=== PATIENT | male | born 2000 | race Two or more races ===

== ENCOUNTER 2024-11-12 18:24 | Emergency (ER) | payer MEDICAID, OTHER ==
[~2024-11-12] VITALS: Ht 177.8 cm; Wt 87.8 kg
--- NOTE | 2024-11-12 18:55 | ECG ---
[facility] Test Date: 2024-11-12 Test Time: 18:49:59 Pat Name: TWIN ARCHIBALD Department: ER Room: Gender: M Comptroller: GP : 2000 Requested By: DOMINIC GUTIERREZ Order Number: [id number] Reading MD: Doug Tellez Measurements Intervals [place] Rate: 83 P: 25 HI: 158 QRS: 52 QRSD: 93 T: 53 QT: 349 QTc: 410 Interpretive Statements Sinus rhythm ST elev, probable normal early repol pattern Electronically Signed On 11-16-2024 9:46:48 PDT by Doug Tellez Please click the below link to view image of tracing.
[2024-11-12 19:14] LABS: Hematocrit 48.4 % (41.0-53.0); Hemoglobin 16.8 g/dL (13.5-17.5); Mean Corpuscular Hemoglobin 28.8 pg (28.0-32.0); Mean Corpuscular Volume 83.0 fL (80.0-100.0); Nucleated Red Blood Cells % 0.1 %
[2024-11-12 19:21] LABS: Chloride 106 mmol/L (98-107); Potassium 3.9 mmol/L (3.5-5.1); Sodium 143 mmol/L (136-145)
[2024-11-12 19:22] LABS: Anion Gap 8 (5-15); Carbon Dioxide 29 mmol/L (20-31)
[2024-11-12 19:27] LABS: BUN/Creatinine Ratio 10.9 (10.0-20.0); Blood Urea Nitrogen 13 mg/dL (9-23); Glucose 89 mg/dL (74-106)
--- NOTE | 2024-11-12 19:35 | DVH ---
CT HEAD WITHOUT CONTRAST INDICATION: dizziness COMPARISON: None TECHNIQUE: CT of the head without intravenous contrast. RADIATION DOSE: CTDIvol: 53.99 mGy, DLP: 863.9 mGy*cm FINDINGS: There is no evidence of intracranial hemorrhage, infarct, extra-axial collection, mass effect, midli ne shift, herniation or hydrocephalus. The ventricles, sulci and cisterns are normal. The aggarwal-white differentiation is normal. Visualized paranasal sinuses and mastoid air cells are clear. Soft tissues and osseous structures are unremarkable. IMPRESSION: No intracranial abnormality identified.
[2024-11-12 19:36] LABS: Calcium 10.6 mg/dL (8.7-10.4)
--- NOTE | 2024-11-12 19:41 | ED.PDOC ---
HPI Comments 23-year-old male presents to ER with complaints of dizziness x 10 days. Patient with no PMH reports he has been experiencing intermittent dizziness x 10 days. Describes his dizziness as sensation of "room spinning" and notes that he does have 100% improvement in symptoms if he does take OTC Dramamine. Denies any pain and presents to ER ambulatory on arrival, alert oriented x4, with steady gait, in no distress. Denies fever, shortness of breath, chest pain, palpitations, syncope, head injury, nausea/vomiting or any further symptoms/complaints Chief Complaint: Dizziness Time Seen by MD: 18:43 Primary Care Provider: DENIES Reviewed Notes: Nurses Notes, Medications, Allergies Allergies: Coded Allergies: NO KNOWN ALLERGIES (Unverified , 11/12/24) Home Meds Active Scripts Meclizine Hcl (Meclizine Hcl) 12.5 Mg Tab, 2 TAB PO QIDP, #16 TAB 0 Refills Prov:ANDREZCAMDOMINIC 11/12/24 Information Source: Patient Mode of Arrival: Ambulatory Past Medical History PAST MEDICAL HISTORY: Denies Surgical History: Denies all surgeries Family History Family History: Unknown Social History Smoker: Non-Smoker Alcohol: Denies ETOH Use Drugs: Denies Drug Use Lives In: Home Constitutional: denies: chills, diaphoresis, fatigue, fever, malaise, sweats, weakness, others EENTM: denies: blurred vision, double vision, ear bleeding, ear discharge, ear drainage, ear pain, ear ringing, eye pain, eye redness, hearing loss, mouth pain, mouth swelling, nasal discharge, nose bleeding, nose congestion, nose pain, photophobia, tearing, throat pain, throat swelling, voice changes, others Respiratory: denies: cough, hemoptysis, orthopnea, SOB at rest, shortness of breath, SOB with excertion, stridor, wheezing, others Cardiovascular: reports: others (As stated in HPI) Gastrointestinal: denies: abdomen distended, abdominal pain, blood streaked bowels, constipated, diarrhea, dysphagia, difficulty swallowing, hematemesis, melena, nausea, poor appetite, poor fluid intake, rectal bleeding, rectal pain, vomiting, others Genitourinary: denies: burning, dysuria, flank pain, frequency, hematuria, incontinence, penile discharge, penile sore, pain, testicle pain, testicle swelling, urgency, others Neurological: reports: others (As stated in HPI) Musculoskeletal: denies: back pain, gout, joint pain, joint swelling, muscle pain, muscle stiffness, neck pain, others Integumetry: denies: bruises, change in color, change in hair/nails, dryness, laceration, lesions, lumps, rash, wounds, others Allergic/Immunocompromised: denies: Difficulty Healing, Frequent Infections, Hives, Itching, others Hematologic/Lymphatic: denies: anemia, blood clots, easy bleeding, easy bruising, swollen glands, others Endocrine: denies: excessive hunger, excessive sweating, excessive thirst, excessive urination, flushing, intolerance to cold, intolerance to heat, unexplained weight gain, unexplained weight loss, others Psychiatric: denies: anxiety, bipolar disorder, depression, hopeless, panic disorder, schizophrenia, sleepless, suicidal, others Physical Exam General Appearance: No Apparent Distress HEENT: Normal ENT Inspection, PERRL/EOMI, Pharynx Normal, TMs Normal Neck: Full Range of Motion, Non-Tender, Normal Respiratory: Chest Non-Tender, Lungs Clear, No Accessory Muscle Use, No Respiratory Distress, Normal Breath Sounds Cardiovascular: No Murmur, No Gallop, Regular Rate/Rhythm Breast Exam: Deferred Gastrointestinal: NOT DONE Genitalia: Deferred Pelvic: Deferred Rectal: Deferred Extremities: Normal capillary refill, Normal range of motion Neurologic: Alert, hand shoe cutter II-XII nml as Tested, No Motor Deficits, Normal Affect, Normal Mood, No Sensory Deficits Cerebellar Function: Normal Reflexes: Normal Skin: Dry, Normal Color, Warm Peripheral Pulses: 2+ Radial (R), 2+ Radial (L), 2+ Brachial (R), 2+ Brachial (L) Lymphatic: No Adenopathy EKG EKG : Pulse Rate (adult): 83 [place]: Normal Cardiac Rhythm: NSR (SR) Block: None Hypertrophy: None Was a procedure done? Was a procedure done?: No Sedation Sedation?: No CP Differential Dx Differential Diagnosis: Electrolyte Disorder, [place], Pulmonary Embolus, Other (mass) X-Ray, Labs, Meds, VS Vital Signs Date Time Temp Pulse Resp B/P (MAP) Pulse Ox O2 Delivery O2 Flow Rate FiO2 11/12/24 19:41 83 11/12/24 18:49 83 11/12/24 18:47 98.0 74 18 133/83 (100) 98 98.0 Lab Test 11/12/24 19:01 11/12/24 18:39 11/12/24 18:30 Range/Units White Blood Count 6.4 4.4-10.8 10^3/uL Red Blood Count 5.83 4.5-5.90 10^6/uL Hemoglobin 16.8 13.5-17.5 g/dL Hematocrit 48.4 41.0-53.0 % Mean Corpuscular Volume 83.0 80.0-100.0 fL Mean Corpuscular Hemoglobin 28.8 28.0-32.0 pg Mean Corpuscular Hemoglobin Concent 34.8 32.0-36.0 g/dL Red Cell Distribution Width 13.2 11.8-14.3 % Platelet Count 263 140-450 10^3/uL Mean Platelet Volume 7.6 6.9-10.8 fL Neutrophils (%) (Auto) 49.3 37.0-80.0 % Lymphocytes (%) (Auto) 41.0 10.0-50.0 % Monocytes (%) (Auto) 7.9 0.0-12.0 % Eosinophils (%) (Auto) 1.1 0.0-7.0 % Basophils (%) (Auto) 0.7 0.0-2.0 % Neutrophils # (Auto) 3.1 1.6-8.6 10 ^3/uL Lymphocytes # (Auto) 2.6 0.4-5.4 10 ^3/uL Monocytes # (Auto) 0.5 0-1.3 10 ^3/uL Eosinophils # (Auto) 0.1 0-0.8 10 ^3/uL Basophils # (Auto) 0 0-0.2 10 ^3/uL Nucleated Red Blood Cells 0.1 % Sodium Level 143 136-145 mmol/L Potassium Level 3.9 3.5-5.1 mmol/L Chloride Level 106 98-107 mmol/L Carbon Dioxide Level 29 20-31 mmol/L Anion Gap 8 5-15 Blood Urea Nitrogen 13 9-23 mg/dL Creatinine 1.19 0.700-1.30 mg/dL Glomerular Filtration Rate Calc 89 >90 mL/min BUN/Creatinine Ratio 10.9 10.0-20.0 Serum Glucose 89 74-106 mg/dL Calcium Level 10.6 H 8.7-10.4 mg/dL Troponin I High Sensitivity 3 L </=54 ng/L POC Glucose 96 70-106 mg/dl Urine Color Yellow Yellow Urine Clarity Clear Clear Urine pH 5.5 5.0-9.0 Urine Specific [place] 1.031 1.001-1.035 Urine Protein Negative Negative Urine Ketones Negative Negative Urine Blood Negative Negative /uL Urine Nitrite Negative Negative Urine Bilirubin Negative Negative Urine Urobilinogen Normal Negative mg/dL Urine Leukocyte Esterase Negative Negative /uL Urine RBC <1 0 - 3 /hpf Urine Microscopic WBC 1 0-3 /HPF Urine Squamous Epithelial Cells Few <5 /hpf Urine Bacteria None seen None Seen /hpf Urine Glucose Normal Normal mg/dL Urine Opiates Screen Neg NEGATIVE Urine Fentanyl Screen Neg NEGATIVE Urine Barbiturates Screen Neg NEGATIVE Urine Phencyclidine Screen Neg NEGATIVE Urine Amphetamines Screen Neg NEGATIVE Urine Benzodiazepines Screen Neg NEGATIVE Urine Cocaine Screen Neg NEGATIVE Urine Cannabinoids Screen Neg NEGATIVE PATIENT: MALISSA ARCHIBALDCCT: [id number]: [id number] : 2000 LOC: ER ROOM / BED: / AGE / SEX: 23 / M ADM STATUS: REG ER SERVICE 184 ORDERING PHYSICIAN: DOMINIC GUTIERREZ PROCEDURE(s): HWOCT - HEAD WITHOUT CONTRAST REASON: dizziness ORDER NUMBER(s): [id number], ACCESSION NUMBER(s): [id number] CT HEAD WITHOUT CONTRAST INDICATION: dizziness COMPARISON: None TECHNIQUE: CT of the head without intravenous contrast. RADIATION DOSE: CTDIvol: 53.99 mGy, DLP: 863.9 mGy*cm FINDINGS: There is no evidence of intracranial hemorrhage, infarct, extra-axial collection, mass effect, midline shift, herniation or hydrocephalus. The ventricles, sulci and cisterns are normal. The aggarwal-white differentiation is normal. Visualized paranasal sinuses and mastoid air cells are clear. Soft tissues and osseous structures are unremarkable. IMPRESSION: No intracranial abnormality identified. ATED BY: HORACIO DALEY MD DICTATED DATE/TIME: 11/12/241932 SIGNED BY: HORACIO DALEY MD SIGNED DATE/TIME: 06/30/25 1933 CC: CBC reviewed-unremarkable BMP reviewed without any significant abnormalities Urinalysis reviewed-unremarkable UDS reviewed EKG reviewed Troponin reviewed-normal CT head without contrast reviewed Hep-Lock IV ordered NS 1 L IV ordered Meclizine 50 mg p.o. ordered Patient had improvement in symptoms and was asymptomatic prior to discharge Advised to drink plenty of fluids Advised to follow up with PCP and neurologist in 1-2 days Patient alert and oriented x4 prior to discharge. Patient verbalized understanding and agreeable with current plan of care Advised to return to ER immediately if symptoms worsen Time of 1ST Reevaluation: 19:40 Reevaluation 1ST: N/A Patient Education/Counseling: Diagnosis, Treatment, Prognosis, Need For Follow Up Family Education/Counseling: No Family Present SEPSIS Sepsis Screen Date sepsis recognized/suspect: Nov 12, 2024 Time Sepsis recognized/suspect: 1834 Recent Procedure: No On Antibiotic Therapy: No Respiratory Rate >20: No Heart Rate >90: No Temp<36 C (96.8 F) or >38.3 C: No SBP <90 or MAP <65 mmHG: No New Acute Mental Status Change: No Is the patient on CPAP, BIPAP,: No Physician Orders Head Without Contrast (11/12/24 18:45) Vital Signs Date Time Temp Pulse Resp B/P (MAP) Pulse Ox O2 Delivery O2 Flow Rate FiO2 11/12/24 19:41 83 11/12/24 18:49 83 11/12/24 18:47 98.0 74 18 133/83 (100) 98 98.0 Laboratory Tests Test 11/12/24 19:01 White Blood Count 6.4 10^3/uL (4.4-10.8) Departure 1 Departure Time of Disposition: 19:40 Impression: Primary Impression: Vertigo Disposition: 01 HOME / SELF CARE / HOMELESS Condition: Stable e-Prescriptions Meclizine Hcl (Meclizine Hcl) 12.5 Mg Tab 2 TAB PO QIDP, #16 TAB 0 Refills Prov: DOMINIC GUTIERREZ 11/12/24 Discharged With: Friend Critical Care Note Critical Care Time?: No Stability Stability form required: No Heart Score Heart Score: Heart Score Response (Comments) Value History N/A 0 EKG N/A 0 Age N/A 0 Risk Factors N/A 0 Troponin N/A 0 Total 0 DOMINIC GUTIERREZ Nov 12, 2024 19:41
[2024-11-12 19:43] LABS: Amphetamine Screen, Urine Neg (NEGATIVE); Barbiturate Scree,Urine Neg (NEGATIVE); Benzodiazephine Screen, Urine Neg (NEGATIVE); Cannabinoid Screen, Urine Neg (NEGATIVE); Cocaine Screen, Urine Neg (NEGATIVE); Opiate Scree,Urine Neg (NEGATIVE); Phencyclidine Screen, Urine Neg (NEGATIVE)
[2024-11-12 19:59] LABS: Urine Protein, UAD Negative (Negative)
[2024-11-12] MEDS ORDERED: MECL12.586 PO (20:49)
[2024-11-13 01:40] VITALS: BP 138/92; PULSE 69; RESP 18; TEMP 98.2; O2SAT 99
== END 2024-11-13 01:42 | disposition home or self-care (01) ==
LOC: ER 18:28
DX: R42 Dizziness and giddiness (principal); Z79.899 Other long term (current) drug therapy
CPT/HCPCS: 36415; 70450; 80048; 80307; 81001; 82947; 82962; 84484; 85025; 93005